=== PATIENT | female | born 1995 | race Caucasian/White ===

== ENCOUNTER 2017-12-31 22:47 | Emergency (ER) | payer MEDICAID ==
[2017-12-31 22:58] VITALS: RESP 16; TEMP 98.2
[2017-12-31] MEDS ORDERED: Metoclopramide 10 mg/10 ml Cup PO STA (23:41)
--- NOTE | 2018-01-01 00:40 | ED PDOC ---
HPI: Headache Time Seen by Provider: 12/31/17 23:32 Chief Complaint (Nursing): Headache History Per: Patient History/Exam Limitations: no limitations Onset/Duration Of Symptoms: Days (months) Current Symptoms Are (Timing): Intermittent Episodes Severity: Mild Associated Symptoms: denies: Photophobia, Blurred Vision, Nausea Additional History Per: Patient Additional Complaint(s): No PMHx p/w headaches, states she was seeing Dr. Mitchell and was advised to get a CT scan and neurology appointment, but she states the appointment is too far. States she took advil today. MEJÍA is intermittent, throbbing, no assoc. photophobia/phonophobia, weakness, tingling, numbness, loss of function. Not maximal at onset. No fevers or neck stiffness. Past Medical History Reviewed: Historical Data, Nursing Documentation, Vital Signs Vital Signs: Last Vital Signs Temp 98.2 F 12/31/17 22:56 Pulse 87 12/31/17 22:56 Resp 16 12/31/17 22:56 BP 128/73 12/31/17 22:56 Pulse Ox 100 12/31/17 22:56 - Medical History PMH: No Chronic Diseases - Surgical History Surgical History: Appendectomy - Family History Family History: States: Unknown Family Hx - Home Medications Home Medications: Ambulatory Orders Medication Instructions Recorded Cyclobenzaprine [Cyclobenzaprine 10 mg PO Q8 PRN #30 tab 04/10/16 HCl] Naproxen [Naprosyn] 500 mg PO BID PRN #30 tab 04/10/16 Aspirin/Acetaminophen/Caffeine 1 each PO BID #30 tablet 01/01/18 [Excedrin Migraine Geltab] - Allergies Allergies/Adverse Reactions: Allergies Allergy/AdvReac Type Severity Reaction Status Date / Time No Known Allergies Allergy Verified 04/10/16 13:40 Review of Systems ROS Statement: Except As Marked, All Systems Reviewed And Found Negative Neurological: Positive for: Headache. Negative for: Weakness, Numbness, Incoordination, Change in Speech, Confusion, Seizures, Altered Mental Status Physical Exam - Reviewed Nursing Documentation Reviewed: Yes Vital Signs Reviewed: Yes - Physical Exam Appears: Positive for: Well, Non-toxic, No Acute Distress Head Exam: Positive for: ATRAUMATIC, NORMAL INSPECTION, NORMOCEPHALIC Skin: Positive for: Normal Color, Warm, DRY Eye Exam: Positive for: EOMI, Normal appearance, PERRL ENT: Positive for: Normal ENT Inspection Neck: Positive for: Normal, Painless ROM Cardiovascular/Chest: Positive for: Regular Rate, Rhythm Respiratory: Positive for: CNT, Normal Breath Sounds Gastrointestinal/Abdominal: Positive for: Normal Exam, Bowel Sounds, Soft Back: Positive for: Normal Inspection Extremity: Positive for: Normal ROM Neurologic/Psych: Positive for: Alert, learning engineer II-XII, Oriented, Gait (nomral). Negative for: Motor/Sensory Deficits, Mood/Affect, Cerebellar Tests (normal), Aphasia, Facial Droop - ECG O2 Sat by Pulse Oximetry: 100 Pulse Ox Interpretation: Normal Medical Decision Making Medical Decision Making: Patient with intermittent headaches x months -likely tension MEJÍA's -will get head CT given chronicity -patient very well appearing --02:34 CT Scan HEAD W/O CONTRAST Exam Date: 12/31/17 This imaging exam was performed at [facility] EXAM: CT Head Without Intravenous Contrast CLINICAL HISTORY: 22 years old, female; Signs and symptoms; Other: Pain; Additional info: L sided MEJÍA x months TECHNIQUE: Axial computed tomography images of the head/brain without intravenous contrast. All CT scans at this facility use one or more dose reduction techniques, viz.: automated exposure control; ma/kV adjustment per patient size (including targeted exams where dose is matched to indication; i.e. head); or iterative reconstruction technique. 293 images are submitted. Coronal and sagittal reformatted images were created and reviewed. Axial reformatted images were created and reviewed. COMPARISON: No relevant prior studies available. FINDINGS: Brain: Unremarkable. No hemorrhage. No significant white matter disease. No edema. Ventricles: Unremarkable. No ventriculomegaly. Bones/joints: Unremarkable. No acute fracture. Soft tissues: Unremarkable. Sinuses: Unremarkable. No acute sinusitis. Mastoid air cells: Unremarkable. No mastoid effusion. IMPRESSION: No evidence of an acute intracranial hemorrhage, midline shift or mass effect is identified. 300 Pt. w/ neg Ct. REferral given to neuro. Return precautions discussed. Disposition - Clinical Impression Clinical Impression: Headache - Disposition Referrals: Sahara Ordaz MD [Medical Doctor] - Disposition Time: 03:00 Condition: STABLE Prescriptions: Aspirin/Acetaminophen/Caffeine [Excedrin Migraine Geltab] 1 each PO BID #30 tablet Instructions: Headache, Adult Forms: [employer] ([place]ian)
--- NOTE | 2018-01-01 02:34 | CT ---
EXAM: CT Head Without Intravenous Contrast CLINICAL HISTORY: 22 years old, female; Signs and symptoms; Other: Pain; Additional info: L sided MEJÍA x months TECHNIQUE: Axial computed tomography images of the head/brain without intravenous contrast. All CT scans at this facility use one or more dose reduction techniques, viz.: automated exposure control; ma/kV adjustment per patient size (including targeted exams where dose is matched to indication; i.e. head); or iterative reconstruction technique. 293 images are submitted. Coronal and sagittal reformatted images were created and reviewed. Axial reformatted images were created and reviewed. COMPARISON: No relevant prior studies available. FINDINGS: Brain: Unremarkable. No hemorrhage. No significant white matter disease. No edema. Ventricles: Unremarkable. No ventriculomegaly. Bones/joints: Unremarkable. No acute fracture. Soft tissues: Unremarkable. Sinuses: Unremarkable. No acute sinusitis. Mastoid air cells: Unremarkable. No mastoid effusion. IMPRESSION: No evidence of an acute intracranial hemorrhage, midline shift or mass effect is identified.
[2018-01-01 03:05] VITALS: BP 108/62; PULSE 88
[2018-01-01 04:53] VITALS: O2SAT 100
== END 2018-01-01 03:03 | disposition home or self-care (01) ==
LOC: H.ER 22:47
DX: R51 Headache (principal)

== ENCOUNTER 2018-03-11 19:43 | Emergency (ER) | payer MEDICAID ==
[2018-03-11 20:40] VITALS: BP 108/60; PULSE 98; RESP 16; TEMP 98.6; O2SAT 100
[2018-03-11] MEDS ORDERED: Iohexol 240 (50 ml) PO ONE (21:37)
[2018-03-11] MEDS ORDERED: Sodium Chloride 0.9% 1,000 ML IV STA (21:37)
--- NOTE | 2018-03-11 21:41 | ED PDOC ---
HPI: Abdomen Time Seen by Provider: 03/11/18 21:29 Chief Complaint (Nursing): Abdominal Pain Chief Complaint (Provider): abdominal pain History Per: Patient History/Exam Limitations: no limitations Onset/Duration Of Symptoms: Days (3) Current Symptoms Are (Timing): Still Present Location Of Pain/Discomfort: RLQ Quality Of Discomfort: Stabbing, "Pain" Associated Symptoms: Constipation. denies: Fever, Chills, Nausea, Vomiting, Diarrhea Additional Complaint(s): 22 y/o female presents with constant right lower abdominal pain x 3 days. Associated blood noted in stool, which is hard stool as patient reports long- standing history of constipation. Denies fever, nausea/vomiting, chest pain, shortness of breath, palpitations, urinary symptoms, vaginal bleeding/ discharge. Past Medical History Reviewed: Historical Data, Nursing Documentation, Vital Signs Vital Signs: Last Vital Signs Temp 98.6 F 03/11/18 20:37 Pulse 98 H 03/11/18 20:37 Resp 16 03/11/18 20:37 BP 108/60 03/11/18 20:37 Pulse Ox 100 03/12/18 02:48 - Medical History PMH: No Chronic Diseases - Surgical History Surgical History: Appendectomy - Family History Family History: States: Unknown Family Hx - Living Arrangements Living Arrangements: With Family - Home Medications Home Medications: Ambulatory Orders Medication Instructions Recorded Cyclobenzaprine [Cyclobenzaprine 10 mg PO Q8 PRN #30 tab 04/10/16 HCl] Naproxen [Naprosyn] 500 mg PO BID PRN #30 tab 04/10/16 Aspirin/Acetaminophen/Caffeine 1 each PO BID #30 tablet 01/01/18 [Excedrin Migraine Geltab] Naproxen [Naprosyn] 500 mg PO Q12 PRN #20 tablet 03/12/18 - Allergies Allergies/Adverse Reactions: Allergies Allergy/AdvReac Type Severity Reaction Status Date / Time No Known Allergies Allergy Verified 04/10/16 13:40 Review of Systems ROS Statement: Except As Marked, All Systems Reviewed And Found Negative Genitourinary Female: Positive for: Pelvic Pain Physical Exam - Reviewed Nursing Documentation Reviewed: Yes Vital Signs Reviewed: Yes - Physical Exam Appears: Positive for: Well, Non-toxic, No Acute Distress Head Exam: Positive for: ATRAUMATIC, NORMAL INSPECTION, NORMOCEPHALIC Skin: Positive for: Normal Color Eye Exam: Positive for: Normal appearance ENT: Positive for: Normal ENT Inspection Cardiovascular/Chest: Positive for: Regular Rate, Rhythm Respiratory: Positive for: Normal Breath Sounds Gastrointestinal/Abdominal: Positive for: Normal Exam, Bowel Sounds, Soft, Tenderness (ruq (mild), rlq). Negative for: Distended, Guarding, Rebound Back: Positive for: Normal Inspection Rectal: Positive for: Other (exam cubing machine tender [facility]). Negative for: Hemorrhoids Extremity: Positive for: Normal ROM Neurologic/Psych: Positive for: Alert, Oriented - Laboratory Results Result Diagrams: 03/11/18 22:25 03/11/18 22:25 - ECG O2 Sat by Pulse Oximetry: 100 - Progress ED Course And Treament: labs, urine, pelvic u/s, CT abd/pelvis, IV toradol EXAM: US Pelvis Complete, Transabdominal CLINICAL HISTORY: 22 years old, female; Pain; Pelvic pain; Patient HX: Right pelvic pain for few days TECHNIQUE: Real-time transabdominal pelvic ultrasound (complete) with image documentation. COMPARISON: CT - ABD PELVIS W/O PO OR IV CONT 2016-04-10 16:10 FINDINGS: Uterus/cervix: Unremarkable measuring 7.4 x 3.9 x 2.4 cm. Normal endometrial stripe thickness measuring 9 mm. No myometrial mass. Right ovary: Unremarkable measuring 2.8 x 4.5 x 1.5 cm. No mass. Normal blood flow. Left ovary: Unremarkable measuring 3.2 x 3.3 x 1.7 cm. No mass. Normal blood flow. Free fluid: No free fluid. Bladder: Unremarkable as visualized. Wall is normal thickness for degree of distention. IMPRESSION: Unremarkable pelvic ultrasound. EXAM: CT Abdomen and Pelvis With Intravenous Contrast CLINICAL HISTORY: 22 years old, female; Pain; Abdominal pain; Localized; Right; Prior surgery; Surgery date: 6+ months; Surgery type: Appendectomy; Additional info: Right abdominal pain TECHNIQUE: Axial computed tomography images of the abdomen and pelvis with intravenous contrast. All CT scans at this facility use one or more dose reduction techniques, viz.: automated exposure control; ma/kV adjustment per patient size (including targeted exams where dose is matched to indication; i.e. head); or iterative reconstruction technique. Coronal and sagittal reformatted images were created and reviewed. CONTRAST: 90 mL of [id number] administered intravenously. COMPARISON: CT - ABD PELVIS W/O PO OR IV CONT 2016-04-10 16:10 FINDINGS: Lung bases: Unremarkable. No mass. No consolidation. ABDOMEN: Liver: Unremarkable. No mass. Gallbladder and bile ducts: Unremarkable. No calcified stones. No ductal dilation. Pancreas: Unremarkable. No mass. No ductal dilation. Spleen: Unremarkable. No splenomegaly. Adrenals: Unremarkable. No mass. Kidneys and ureters: Mild fullness of the collecting system bilaterally. No distal ureteral stone. The kidneys demonstrate bilateral symmetric enhancement. Stomach and bowel: Unremarkable. No obstruction. No mucosal thickening.There is no wall thickening or pericolonic stranding to suggest colitis. PELVIS: Appendix: Not visualized. History of previous appendectomy. Bladder: Unremarkable. No mass. Reproductive: Unremarkable as visualized. ABDOMEN and PELVIS: Intraperitoneal space: Unremarkable. No free air. No significant fluid collection. Bones/joints: No acute fracture. No dislocation. Soft tissues: Unremarkable. Vasculature: Unremarkable. No abdominal aortic aneurysm. Lymph nodes: Unremarkable. No enlarged lymph nodes. IMPRESSION: Mild fullness of the collecting system bilaterally. No distal ureteral stone. Otherwise unremarkable CT of the abdomen and pelvis. Patient educated on findings, discharged with instructions to follow up with PMD 2-3 days. Rx naproxen provided. Advised fluids. Follow up GI Return precautions given Disposition - Clinical Impression Clinical Impression: Abdominal pain, Rectal bleeding - Patient ED Disposition Is Patient to be Admitted: No Counseled Patient/Family Regarding: Studies Performed, Diagnosis, Need For Followup - Disposition Referrals: Kesha Lynch MD [Medical Doctor] - Disposition: Routine/Home Disposition Time: 02:10 Condition: IMPROVED Prescriptions: Naproxen [Naprosyn] 500 mg PO Q12 PRN #20 tablet PRN Reason: Pain, Moderate (4-7) Instructions: Acute Abdomen (Belly Pain), Adult (DC), Bloody Stools
[2018-03-11 22:40] LABS: SQUAMOUS EPITHIAL 4 /hpf (0-5); URINE BACTERIA RARE (<OCC); URINE BILIRUBIN NEGATIVE (NEGATIVE); URINE BLOOD NEGATIVE (NEGATIVE); URINE CLARITY CLOUDY (Clear); URINE COLOR YELLOW (YELLOW); URINE GLUCOSE (UA) NEG (Normal); URINE LEUKOCYTE ESTERASE TRACE Leu/uL (Negative); URINE PROTEIN NEGATIVE (NEGATIVE); URINE UROBILINOGEN 0.2-1.0 mg/dL (0.2-1.0)
[2018-03-11 22:49] LABS: BASO % 0.7 % (0.0-2.0); EOS % 0.5 % (0.0-4.0); HEMOGLOBIN 12.4 g/dL (12.0-16.0); LYMPH # 1.9 K/uL (1.0-4.3); LYMPH % 29.7 % (20.0-40.0); MEAN CELL VOLUME 88.9 fl (81.0-99.0); MEAN CORPUSCULAR HGB CONC 33.8 g/dL (33.0-37.0); MEAN PLATELET VOLUME 8.6 fl (7.2-11.7); MONO # 0.8 K/uL (0.0-0.8); NEUT # 3.6 K/uL (1.8-7.0); NEUT % 57.1 % (50.0-75.0); RBC 4.13 Mil/uL (3.80-5.20); RED CELL DISTRIBUTION WIDTH 13.5 % (11.5-14.5); WHITE BLOOD COUNT 6.3 K/uL (4.8-10.8)
[2018-03-11] MEDS ORDERED: Iohexol 240 (50 ml) ONE (22:56)
[2018-03-11 23:17] LABS: ALB/GLOB RATIO 1.4 (1.0-2.1); ALBUMIN 4.2 g/dL (3.5-5.0); ALT/SGPT 20 U/L (9-52); AST/SGOT 22 U/L (14-36); BLOOD UREA NITROGEN 11 mg/dl (7-17); CALCIUM 9.7 mg/dL (8.4-10.2); GFR AFRICAN-AMERICAN > 60; GFR NON-AFRICAN AMERICAN > 60
[2018-03-12] MEDS ORDERED: Iohexol 300 100 ML IJ ONE (00:53)
[2018-03-12] MEDS ORDERED: Sodium Chloride 0.9% 100 ML ONE (00:53)
--- NOTE | 2018-03-12 02:05 | CT ---
EXAM: CT Abdomen and Pelvis With Intravenous Contrast CLINICAL HISTORY: 22 years old, female; Pain; Abdominal pain; Localized; Right; Prior surgery; Surgery date: 6+ months; Surgery type: Appendectomy; Additional info: Right abdominal pain TECHNIQUE: Axial computed tomography images of the abdomen and pelvis with intravenous contrast. All CT scans at this facility use one or more dose reduction techniques, viz.: automated exposure control; ma/kV adjustment per patient size (including targeted exams where dose is matched to indication; i.e. head); or iterative reconstruction technique. Coronal and sagittal reformatted images were created and reviewed. CONTRAST: 90 mL of administered intravenously. COMPARISON: CT - ABD PELVIS W/O PO OR IV CONT 2016-04-10 16:10 FINDINGS: Lung bases: Unremarkable. No mass. No consolidation. ABDOMEN: Liver: Unremarkable. No mass. Gallbladder and bile ducts: Unremarkable. No calcified stones. No ductal dilation. Pancreas: Unremarkable. No mass. No ductal dilation. Spleen: Unremarkable. No splenomegaly. Adrenals: Unremarkable. No mass. Kidneys and ureters: Mild fullness of the collecting system bilaterally. No distal ureteral stone. The kidneys demonstrate bilateral symmetric enhancement. Stomach and bowel: Unremarkable. No obstruction. No mucosal thickening.There is no wall thickening or pericolonic stranding to suggest colitis. PELVIS: Appendix: Not visualized. History of previous appendectomy. Bladder: Unremarkable. No mass. Reproductive: Unremarkable as visualized. ABDOMEN and PELVIS: Intraperitoneal space: Unremarkable. No free air. No significant fluid collection. Bones/joints: No acute fracture. No dislocation. Soft tissues: Unremarkable. Vasculature: Unremarkable. No abdominal aortic aneurysm. Lymph nodes: Unremarkable. No enlarged lymph nodes. IMPRESSION: Mild fullness of the collecting system bilaterally. No distal ureteral stone. Otherwise unremarkable CT of the abdomen and pelvis.
--- NOTE | 2018-03-12 02:06 | US ---
EXAM: US Pelvis Complete, Transabdominal CLINICAL HISTORY: 22 years old, female; Pain; Pelvic pain; Patient HX: Right pelvic pain for few days TECHNIQUE: Real-time transabdominal pelvic ultrasound (complete) with image documentation. COMPARISON: CT - ABD PELVIS W/O PO OR IV CONT 2016-04-10 16:10 FINDINGS: Uterus/cervix: Unremarkable measuring 7.4 x 3.9 x 2.4 cm. Normal endometrial stripe thickness measuring 9 mm. No myometrial mass. Right ovary: Unremarkable measuring 2.8 x 4.5 x 1.5 cm. No mass. Normal blood flow. Left ovary: Unremarkable measuring 3.2 x 3.3 x 1.7 cm. No mass. Normal blood flow. Free fluid: No free fluid. Bladder: Unremarkable as visualized. Wall is normal thickness for degree of distention. IMPRESSION: Unremarkable pelvic ultrasound.
== END 2018-03-12 03:11 | disposition short-term general hospital (02) ==
LOC: H.ER 19:43
DX: R10.31 Right lower quadrant pain (principal); K62.5 Hemorrhage of anus and rectum; Z79.82 Long term (current) use of aspirin
CPT/HCPCS: 74177; 76856; 80053; 81003; 81025; 85025; 87086; 99283; G0328; J1885; J7040; Q9966; Q9967

== ENCOUNTER 2018-12-24 12:00 | Emergency (ER) | payer MEDICAID ==
[2018-12-24] MEDS: Sodium Chloride 0.9% 1,000 ML IV STA (13:42)
--- NOTE | 2018-12-24 13:49 | ED PDOC ---
HPI: General Adult Time Seen by Provider: 12/24/18 12:21 Chief Complaint (Nursing): GI Problem Chief Complaint (Provider): Bodyaches, vomiting History Per: Patient History/Exam Limitations: no limitations Onset/Duration Of Symptoms: Hrs Current Symptoms Are (Timing): Still Present Additional History Per: Patient Additional Complaint(s): 23yo female, otherwise well, history of migraines, comes to ER stating she woke up today at 2am with bodyaches, chills and has had multiple episodes of vomiting since then. She reports she was fine yesterday and denies any recent travels, or antibiotics use. She also denies any diarrhea. Patient states she has been exposed to multiple sick people while at school. Otherwise, no weakness, numbness, chest pain, shortness of breath, abdominal pain. No additional complaints. PMD: Henrry Maldonado Past Medical History Reviewed: Historical Data, Nursing Documentation, Vital Signs Vital Signs: Last Vital Signs Temp 99.0 F 12/24/18 12:07 Pulse 106 H 12/24/18 12:07 Resp 14 12/24/18 12:07 BP 117/80 12/24/18 12:07 Pulse Ox 99 12/24/18 12:07 - Medical History PMH: Migraine - Surgical History Surgical History: Appendectomy - Family History Family History: States: No Known Family Hx, Unknown Family Hx - Living Arrangements Living Arrangements: With Family - Home Medications Home Medications: Ambulatory Orders Medication Instructions Recorded Cyclobenzaprine [Cyclobenzaprine 10 mg PO Q8 PRN #30 tab 04/10/16 HCl] Naproxen [Naprosyn] 500 mg PO BID PRN #30 tab 04/10/16 Aspirin/Acetaminophen/Caffeine 1 each PO BID #30 tablet 01/01/18 [Excedrin Migraine Geltab] Docusate Sodium [Colace] 100 mg PO DAILY #15 capsule 03/12/18 Naproxen [Naprosyn] 500 mg PO Q12 PRN #20 tablet 03/12/18 - Allergies Allergies/Adverse Reactions: Allergies Allergy/AdvReac Type Severity Reaction Status Date / Time No Known Allergies Allergy Verified 12/24/18 12:05 Review of Systems ROS Statement: Except As Marked, All Systems Reviewed And Found Negative Constitutional: Positive for: Chills, Malaise Cardiovascular: Negative for: Chest Pain Respiratory: Negative for: Cough, Shortness of Breath Gastrointestinal: Positive for: Nausea, Vomiting. Negative for: Abdominal Pain, Diarrhea Neurological: Positive for: Headache. Negative for: Weakness, Numbness Physical Exam - Reviewed Nursing Documentation Reviewed: Yes Vital Signs Reviewed: Yes - Physical Exam Appears: Positive for: Non-toxic, No Acute Distress Head Exam: Positive for: ATRAUMATIC, NORMAL INSPECTION, NORMOCEPHALIC Skin: Positive for: Normal Color, Warm Eye Exam: Positive for: EOMI, PERRL ENT: Negative for: Pharyngeal Erythema Neck: Positive for: Normal, Painless ROM, Supple Cardiovascular/Chest: Positive for: Regular Rate, Rhythm, Chest Non Tender Respiratory: Positive for: Normal Breath Sounds. Negative for: Wheezing Pulses-Radial (L): 2+ Pulses-Radial (R): 2+ Gastrointestinal/Abdominal: Positive for: Normal Exam, Soft. Negative for: Tenderness, Guarding, Rebound Back: Positive for: Normal Inspection. Negative for: L CVA Tenderness, R CVA Tenderness Extremity: Positive for: Normal ROM Neurologic/Psych: Positive for: Alert, Oriented. Negative for: Motor/Sensory Deficits - Laboratory Results Result Diagrams: 12/24/18 13:38 12/24/18 13:38 - ECG O2 Sat by Pulse Oximetry: 99 (RA) Pulse Ox Interpretation: Normal - Progress Re-evaluation Time: 15:41 Condition: Re-examined, Improved Medical Decision Making Medical Decision Making: Impression: Headache, bodyaches, vomiting Differential: Migraine headache, influenza, viral illness, gastroenteritis Plan: -- Labs -- IV fluids -- Toradol 30mg IV -- Reglan 10mg IV -- Rapid flu Scribe Attestation: Documented by Priscila Cabrales acting as a scribe for Angel Lentz MD Provider Attestation: All medical record entries made by the Scribe were at my direction and personally dictated by me. I have reviewed the chart and agree that the record accurately reflects my personal performance of the history, physical exam, medical decision making, and the department course for this patient. I have also personally directed, reviewed, and agree with the discharge instructions and disposition. Disposition - Clinical Impression Clinical Impression: Headache, Vomiting - Patient ED Disposition Is Patient to be Admitted: No Doctor Will See Patient In The: Office Counseled Patient/Family Regarding: Studies Performed, Diagnosis, Need For Followup - Disposition Referrals: Henrry Maldonado, LITA, CHIEF MECHANICAL ENGINEER [Family Provider] - Disposition: Routine/Home Disposition Time: 15:41 Condition: GOOD Additional Instructions: ROE DOOLEY, thank you for letting us take care of you today. Your provider was Angel Lentz MD and you were treated for BODY PAIN,HEADACHE. The emergency medical care you received today was directed at your acute symptoms. If you were prescribed any medication, please fill it and take as directed. It may take several days for your symptoms to resolve. Return to the Emergency Department if your symptoms worsen, do not improve, or if you have any other problems. Please contact your doctor or call one of the physicians/clinics you have been referred to that are listed on the Patient Visit Information form that is included in your discharge packet. Bring any paperwork you were given at discharge with you along with any medications you are taking to your follow up visit. Our treatment cannot replace ongoing medical care by a primary care provider outside of the emergency department. Thank you for allowing the [facility] team to be part of your care today. If you had an X-Ray or CT scan: A Radiologist will review the ED reading if any change in treatment is needed we will contact you. If you had a blood, urine, or wound culture: It will take several days for the results, if any change in treatment is needed we will contact you. If you had an STI test: It will take 48 hours for the results. Please call after 1 week if you have not heard back. Instructions: Nausea and Vomiting, Adult, Migraine Headaches in Adults Forms: [employer] ([place])
[2018-12-24 14:25] LABS: BASO % 0.1 % (0.0-2.0); EOS % 0.2 % (0.0-4.0); HEMOGLOBIN 13.2 g/dL (12.0-16.0); LYMPH # 0.3 K/uL (1.0-4.3); LYMPH % 5.8 % (20.0-40.0); MEAN CORPUSCULAR HEMOGLOBIN 29.7 pg (27.0-31.0); MEAN CORPUSCULAR HGB CONC 33.4 g/dL (33.0-37.0); MEAN PLATELET VOLUME 9.6 fl (7.2-11.7); MONO # 0.4 K/uL (0.0-0.8); NEUT # 5.2 K/uL (1.8-7.0); NEUT % 86.9 % (50.0-75.0); PLATELET COUNT 202 K/uL (130-400); RBC 4.44 Mil/uL (3.80-5.20)
[2018-12-24 14:46] VITALS: RESP 18
[2018-12-24 15:07] LABS: ALT/SGPT 14 U/L (9-52); AST/SGOT 31 U/L (14-36); BLOOD UREA NITROGEN 12 mg/dl (7-17); CALCIUM 9.3 mg/dL (8.4-10.2); LIPASE 73 U/L (23-300)
[2018-12-24 15:10] LABS: ALB/GLOB RATIO 1.2 (1.0-2.1); ALBUMIN 4.3 g/dL (3.5-5.0); GFR NON-AFRICAN AMERICAN > 60
[2018-12-24 15:15] LABS: BANDS 1 % (0-2); LYMPHOCYTE 5 % (20-50); MONOCYTE 4 % (0-10); NEUTROPHIL 90 % (42-75); TOTAL CELLS COUNTED 100
[2018-12-24 15:25] LABS: PLATELET ESTIMATE NORMAL (NORMAL)
[2018-12-24 16:14] VITALS: BP 103/69; PULSE 88; TEMP 98; O2SAT 100
== END 2018-12-24 16:13 | disposition home or self-care (01) ==
LOC: H.ER 12:00
DX: R51 Headache (principal); R11.10 Vomiting, unspecified
CPT/HCPCS: 80053; 81025; 83690; 85025; 87804; 96360; 96361; 96374; 96375; 99284; J1885; J2765; J7030